=== PATIENT | female | born 1970 | race African-American/Black ===

== ENCOUNTER → 2021-06-04 | Outpatient (CLI) | payer OTHER ==
--- NOTE | 2021-06-18 17:00 | RAD ---
Bilateral digital screening 2-D and 3-D (tomosynthesis) mammogram: Reason for examination: Routine screening. Prior studies been requested from [place], but have not been received. Bilateral mammograms in [place] and oblique projections were obtained with 2-D imaging and 3-D tomosynthes is imaging and reviewed on the workstation. Interpretation was made with the benefit of CAD. Findings: Breast density: Category D. The breasts are extremely dense which lowers sensitivity of mammography. There is a 1 cm oval circumscribed mass in the 9:00 position right breast approximately 4.5 cm from t he nipple at middle depth. No additional breast mass is visualized. There are no malignant appearing calcifications or architectural distortion. Impression: 1 cm mass in the 9:00 position of the right breast. Comparison of previous mammograms is recommended. If none can be obtained, or if the mass is new or increasing in size, further evaluation with target ed right breast ultrasound is recommended. ASSESSMENT: BI-RADS 0. Incomplete. RECOMMENDATION: Comparison to previous mammograms is recommended. If none are available, targeted rig ht breast ultrasound is recommended. The patient will be contacted with results and asked to schedule for additional imaging, if needed. T his patient's information has been entered into a reminder system for the patient to be notified with the results of her examination and a target date for the next mammogram. Your patient's mammogram demonstrates that she has dense breast tissue (breast density category C or D), which could hide abnormalities, and if she has other risk factors for breast cancer that have bee n identified, she might benefit from supplemental screening tests that may be suggested by you as her ordering physician. Dense breast tissue, in and of itself, is a relatively common condition. Therefo re, this information is not provided to cause undue concern, but rather to raise your awareness and t o promote discussion with your patient regarding the presence of other risk factors, in addition to d ense breast tissue. Electronically signed by: Ronna Ortega MD (06/18/2021 4:58 PM) [id number]
== END ==
LOC: MAMMO 08:20
PROVIDERS: ATTEND Internal Medicine
DX: Z12.31 Encounter for screening mammogram for malignant neoplasm of breast (principal); N63.41 Unspecified lump in right breast, subareolar
CPT/HCPCS: 77063; 77067